=== PATIENT | male | born 1930 | race Caucasian/White ===

== ENCOUNTER 2017-02-24 10:40 | Day surgery (SDC) | payer MEDICARE, BC ==
[2017-02-21 09:41] VITALS: BMI 27.2
[~2017-02-24 10:40] MED LIST: DEXAMETHASONE SOD PHOSPHATE 10 MG/ML 1 ML VIAL IV ONE; HEPARIN SODIUM,PORCINE 5,000 UNIT/ML 1 ML VIAL SQ ONE; LIDOCAINE 1% 20 ML VIAL (10MG/ML) FOR IV START INTRADERMA PRN; ONDANSETRON 4 MG/2 ML VIAL IVP ONE; ceFAZolin IN SWFI 2 GM/20 ML SYRINGE IVP ONE
[2017-02-24] MEDS: LACTATED RINGERS 1,000 ML IV SCH ×3 (12:11→22:12)
[2017-02-24 12:49] LABS: Potassium 5.6 mmol/L (3.5-5.1)
--- NOTE | 2017-02-24 13:04 | P.GSHP ---
History of Present Illness H&P Date: 02/24/17 Chief Complaint: Right upper quadrant pain This is a 86-year-old male for from Dr. Anibal Portillo. Patient points of right upper quadrant pain. His recent ultrasound shows evidence of chronic cholecystitis. He presents today for laparoscopic cholecystectomy. Past Medical History Past Medical History: Cancer, Hyperlipidemia, Hypertension, Osteoarthritis (OA) , Prostate Disorder Additional Past Medical History / Comment(s): SINUS ALLERGIES. GLAUCOMA (RIGHT EYE), numbness- lt foot pinky toe and toe next to it, prostate cancer with radiation History of Any Multi-Drug Resistant Organisms: None Reported Past Surgical History: Heart Catheterization, Hernia Repair, Joint Replacement Additional Past Surgical History / Comment(s): BILATERAL CATARACTS (2004). TOTAL RIGHT HIP, lt knee replacement Past Anesthesia/Blood Transfusion Reactions: No Reported Reaction Past Psychological History: No Psychological Hx Reported Smoking Status: Never smoker Past Alcohol Use History: Occasional Past Drug Use History: None Reported - Past Family History Mother Family Medical History: No Reported History Medications and Allergies Home Medications Medication Instructions Recorded Confirmed Type Dorzolamide 2% [Trusopt 2%] 1 drops RIGHT EYE BID 02/21/17 02/21/17 History Isosorbide Mononitrate [Isosorbide 30 mg PO DAILY 02/21/17 02/21/17 History Mononitrate ER] Latanoprost Ophth [Xalatan 0.005%] 1 drops RIGHT EYE HS 02/21/17 02/21/17 History Losartan [Cozaar] 25 mg PO DAILY 02/21/17 02/21/17 History Simvastatin [Zocor] 20 mg PO HS 02/21/17 02/21/17 History Allergies Allergy/AdvReac Type Severity Reaction Status Date / Time No Known Allergies Allergy Verified 02/21/17 09:35 Surgical - Exam Vital Signs Temp Pulse Resp BP Pulse Ox 97.8 F 79 18 164/82 96 02/24/17 12:02 02/24/17 12:02 02/24/17 12:02 02/24/17 12:02 02/24/17 12:02 - General well developed, no distress - Eyes PERRL - ENT normal pinna - Neck no masses - Respiratory normal expansion - Cardiovascular Rhythm: regular - Abdomen Abdomen: soft, non tender Assessment and Plan Assessment: Chronic cholecystitis. Right upper quadrant pain. We'll perform laparoscopic cholecystectomy.
[2017-02-24] MEDS ORDERED: GLYCOPYRROLATE 0.2 MG/ML 2 ML VIAL ONE (13:33)
[2017-02-24] MEDS ORDERED: SUCCINYLCHOLINE CHLORIDE 100 MG/5 ML SYR IV ONE (13:33)
[2017-02-24] MEDS ORDERED: LIDOCAINE 1% INJ 10MG/ML (20 ML MDV) ONE (13:33)
[2017-02-24] MEDS ORDERED: NEOSTIGMINE 1 MG/ML 10 ML VIAL ONE (13:33)
[2017-02-24] MEDS ORDERED: fentaNYL (PF) 50 MCG/ML 2 ML AMP ONE (13:33)
[2017-02-24] MEDS ORDERED: PROPOFOL 10 MG/ML 20 ML VIAL IV ONE (13:33)
[2017-02-24] MEDS ORDERED: ROCURONIUM BROMIDE 10 MG/ML 10 ML VIAL IV ONE (13:33)
[2017-02-24] MEDS ORDERED: BUPIVACAINE (PF) 0.5% 30 ML VIAL SQ ONE (14:10)
[2017-02-24] MEDS ORDERED: LACTATED RINGERS 1,000 ML IV ONE (14:14)
[2017-02-24] MEDS: HYDROmorphone 0.5 MG/0.5 ML SYRINGE IVP PRN ×2 (14:43→14:53)
[2017-02-24] MEDS: LABETALOL 5 MG/ML VIAL MDV IVP ONE ×2 (14:53→15:08)
--- NOTE | 2017-02-24 15:03 | P.OP ---
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 The patient received a general endotracheal tube anesthesia. The patients abdomen was prepped and draped in the usual sterile fashion. Through an infraumbilical stab incision, the fascia of the anterior abdominal wall was grasped with a pair of Kochers and then the Veress needle was placed in the peritoneal cavity. Position of the Veress needle was confirmed with positive drop test. The abdomen was then insufflated. After adequate insufflation, the 10 mm trocar was placed in the peritoneal cavity. Following this the laparoscope was placed in the peritoneal cavity. The patient was placed in the head-up, right side up position and then a 5 mm trocar was placed in the right lateral and right subcostal position under direct visualization. A 8 mm trocar was placed in the epigastric position. There appeared to be scar tissue along the right liver edge. Using the Harmonic scissors the scar tissue was divided. There was evidence of scarring just above the gallbladder fossa. This was grasped with grasper and the liver was retracted cephalad. Using blunt and sharp dissection the area of fat around the gallbladder fossa was dissected. The gallbladder was difficult to visualize. The dissection was extended towards the common bile duct. Using a pusher the fact that the peritoneum was dissected free the gallbladder was still difficult to see. The common bile duct was visualized. The cystic duct was then visualized off the common bile duct. There was dense inflammation in the gallbladder fossa. The gallbladder fossa had the appearance of a previous cholecystectomy. There were no other scars in the patient's abdominal wall. At this point the cystic duct was then bluntly dissected. And then the cystic duct was ligated with 2-0 Ethibond suture the timeout device. The scar tissue in the gallbladder fossa was then dissected free using the Harmonic scissors. Care was taken to identify and preserve the common bile duct and common hepatic duct. The specimen was placed in Endo Catch and brought out through the epigastric 8 mm trocar site. The abdomen was irrigated. There is no bleeding seen. The trochars withdrawn. Skin was closed interrupted 3-0 Monocryl suture. Dermabond was applied. Patient was sent to recovery in stable condition.
[2017-02-24] MEDS ORDERED: MORPHINE SULFATE 4 MG/ML SYRINGE IVP ONE (15:10)
[2017-02-24] MEDS: hydrALAZINE HCL 20 MG/ML 1 ML VIAL IV ONE ×2 (15:54→17:13)
[2017-02-24] MEDS ORDERED: HYDROcodone/APAP 7.5-325MG 1 EACH TAB PO ONE (16:14)
[2017-02-24] MEDS ORDERED: HYDROmorphone 2 MG/ML 1 ML SYRINGE IVP PRN (19:29)
[2017-02-24] MEDS ORDERED: HYDROcodone/APAP 5-325MG 1 EACH TAB PO PRN (19:30)
[2017-02-24] MEDS ORDERED: ONDANSETRON 4 MG/2 ML VIAL IVP PRN (19:32)
[2017-02-24] MEDS ORDERED: ATORVASTATIN 10 MG TAB PO SCH (21:15)
[2017-02-24] MEDS ORDERED: LATANOPROST 0.005% OPHTH DROPS 2.5 ML BTL RIGHT EYE SCH (21:15)
[2017-02-24] MEDS: DORZOLAMIDE HCL 2% DROPS 10 ML BTL RIGHT EYE SCH (22:12)
[2017-02-25] MEDS: LACTATED RINGERS 1,000 ML IV SCH (06:40)
[2017-02-25] MEDS ORDERED: ISOSORBIDE MONONITRATE ER 30 MG TAB.ER.24H PO SCH (09:00)
[2017-02-25] MEDS: DORZOLAMIDE HCL 2% DROPS 10 ML BTL RIGHT EYE SCH (10:08)
[2017-02-25 11:47] LABS: Anion Gap 9 mmol/L; Blood Urea Nitrogen 23 mg/dL (9-20); Calcium 9.4 mg/dL (8.4-10.2); Carbon Dioxide 20 mmol/L (22-30); Chloride 104 mmol/L (98-107); Glucose 115 mg/dL (74-99); Non-African American GFR(MDRD) >60 (>60 ml/min/1.73 sqM); Potassium 4.5 mmol/L (3.5-5.1); Sodium 133 mmol/L (137-145)
[2017-02-25 12:33] VITALS: BP 158/76; PULSE 72; RESP 16; TEMP 98
--- NOTE | 2017-02-25 12:57 | P.PN ---
Subjective Progress Note Date: 02/25/17 Principal diagnosis: Cholecystitis Patient doing well no complaints abdominal pain is improved he is ambulating tolerating a diet Objective - Vital Signs Vital signs: Vital Signs Temp 98.0 F 02/25/17 12:00 Pulse 72 02/25/17 12:00 Resp 16 02/25/17 12:00 BP 158/76 02/25/17 12:00 Pulse Ox 91 L 02/25/17 12:00 Intake & Output 02/24/17 02/25/17 02/25/17 18:59 06:59 18:59 Intake Total 1999 900 Output Total 10 600 375 Balance 1989 300 -375 Intake: IV 2000 800 Lactated Ringers 1,000 ml 800 @ 100 mls/hr IV .Q10H [facility] Rx#:[id number] Oral 100 Output: Urine 600 375 Uretheral (Marie) 375 Estimated Blood Loss 10 Other: Voiding Method Indwelling Catheter Indwelling Catheter - Constitutional General appearance: Present: average body habitus, cooperative - EENT Eyes: Present: PERRLA - Respiratory Details: Nonlabored breathing - Cardiovascular Rhythm: regular - Gastrointestinal Gastrointestinal Comment(s): Soft nontender nondistended incisions clean dry and intact - Psychiatric Psychiatric: Present: A&O x's 3 - Labs CBC & Chem 7: 02/25/17 11:22 Labs: Abnormal Lab Results - Last 24 Hours (Table) 02/24/17 02/25/17 Range/Units 12:29 11:22 Sodium 133 L (137-145) mmol/L Potassium 5.6 H (3.5-5.1) mmol/L Carbon Dioxide 20 L (22-30) mmol/L BUN 23 H (9-20) mg/dL Glucose 115 H (74-99) mg/dL Assessment and Plan Assessment: Postoperative day 1 laparoscopic cholecystectomy Plan: Patient is tolerating his diet DC Marie it able to urinate on his own he may be discharged home.
--- NOTE | 2017-02-25 13:02 | P.CONS ---
History of Present Illness - History of Present Illness Patient underwent laparoscopic cholecystectomy for chronic cholecystitis patient is clinically doing well medicine was consulted secondary to hypertension and the hyperkalemia patient is on losartan 25 mg I'm able to review his home blood pressures most of which are in low 100s with 25 mg of losartan because of which I do not believe he'll require it and this will be discontinued patient was asked to follow-up with Dr. Anibal Schroeder as an outpatient. Patient denied any fever, chills, nausea, vomiting patient is a Marie catheter in place did not move his bowel yet but doesn't pass gas patient is otherwise clinically doing well. Review of Systems REVIEW OF SYSTEMS: CONSTITUTIONAL: No fever, no malaise, no fatigue. HEENT: No recent visual problems or hearing problems. Denied any sore throat. CARDIOVASCULAR: No chest pain, orthopnea, PND, no palpitations, no syncope. PULMONARY: No shortness of breath, no cough, no hemoptysis. GASTROINTESTINAL: No diarrhea, no nausea, no vomiting, no abdominal pain. Normoactive bowel sounds. NEUROLOGICAL: No headaches, no weakness, no numbness. HEMATOLOGICAL: Denies any bleeding or petechiae. GENITOURINARY: Denies any burning micturition, frequency, or urgency. MUSCULOSKELETAL/RHEUMATOLOGICAL: Denies any joint pain, swelling, or any muscle pain. ENDOCRINE: Denies any polyuria or polydipsia. The rest of the 14-point review of systems is negative. Past Medical History Past Medical History: Cancer, Hyperlipidemia, Hypertension, Osteoarthritis (OA) , Prostate Disorder Additional Past Medical History / Comment(s): SINUS ALLERGIES. GLAUCOMA (RIGHT EYE), numbness- lt foot pinky toe and toe next to it, prostate cancer with radiation History of Any Multi-Drug Resistant Organisms: None Reported Past Surgical History: Heart Catheterization, Hernia Repair, Joint Replacement Additional Past Surgical History / Comment(s): BILATERAL CATARACTS (2004). TOTAL RIGHT HIP, lt knee replacement Past Anesthesia/Blood Transfusion Reactions: No Reported Reaction Smoking Status: Never smoker - Past Family History Mother Family Medical History: No Reported History Medications and Allergies Home Medications Medication Instructions Recorded Confirmed Type Dorzolamide 2% [Trusopt 2%] 1 drops RIGHT EYE BID 02/21/17 02/21/17 History Isosorbide Mononitrate [Isosorbide 30 mg PO DAILY 02/21/17 02/21/17 History Mononitrate ER] Latanoprost Ophth [Xalatan 0.005%] 1 drops RIGHT EYE HS 02/21/17 02/21/17 History Simvastatin [Zocor] 20 mg PO HS 02/21/17 02/21/17 History Allergies Allergy/AdvReac Type Severity Reaction Status Date / Time No Known Allergies Allergy Verified 02/24/17 20:48 Physical Exam Vitals: Vital Signs Temp Pulse Pulse Pulse Resp BP BP 02/25/17 12:00 98.0 F 72 16 02/25/17 08:00 98.1 F 74 18 02/25/17 03:49 17 02/25/17 03:38 98.3 F 72 17 02/24/17 23:54 16 02/24/17 22:42 97.8 F 79 16 02/24/17 20:54 17 02/24/17 20:40 98.0 F 81 17 183/79 02/24/17 19:05 86 20 172/81 02/24/17 18:35 68 16 165/70 02/24/17 18:06 64 16 163/76 02/24/17 17:45 68 16 166/75 02/24/17 16:41 179/84 02/24/17 16:19 182/87 02/24/17 16:02 67 16 197/80 02/24/17 15:46 65 16 201/94 02/24/17 15:30 67 16 177/84 02/24/17 15:24 60 180/90 02/24/17 15:15 60 16 182/88 02/24/17 15:07 66 192/97 02/24/17 15:01 71 16 183/92 02/24/17 14:59 77 16 190/109 02/24/17 14:47 94 16 201/108 02/24/17 14:32 97.0 F L 88 14 179/108 BP Pulse Ox 02/25/17 12:00 158/76 91 L 02/25/17 08:00 179/82 96 02/25/17 03:49 02/25/17 03:38 142/77 93 L 02/24/17 23:54 02/24/17 22:42 157/74 91 L 02/24/17 20:54 02/24/17 20:40 94 L 02/24/17 19:05 94 L 02/24/17 18:35 99 02/24/17 18:06 99 02/24/17 17:45 99 02/24/17 16:41 02/24/17 16:19 02/24/17 16:02 02/24/17 15:46 99 02/24/17 15:30 94 L 02/24/17 15:24 02/24/17 15:15 97 02/24/17 15:07 02/24/17 15:01 96 02/24/17 14:59 95 02/24/17 14:47 100 02/24/17 14:32 100 Intake and Output 02/24/17 02/25/17 02/25/17 22:59 06:59 14:59 Intake Total 900 800 Output Total 600 375 Balance 900 200 -375 Intake: IV 800 800 Lactated Ringers 1,000 ml 800 @ 100 mls/hr IV .Q10H [facility] Rx#:[id number] Oral 100 Output: Urine 600 375 Uretheral (Marie) 375 Other: Voiding Method Indwelling Catheter Indwelling Catheter Indwelling Catheter PHYSICAL EXAMINATION: GENERAL: The patient is alert and oriented x3, not in any acute distress. Well developed, well nourished. HEENT: Pupils are round and equally reacting to light. EOMI. No scleral icterus. No conjunctival pallor. Normocephalic, atraumatic. No pharyngeal erythema. No thyromegaly. CARDIOVASCULAR: S1 and S2 present. No murmurs, rubs, or gallops. PULMONARY: Chest is clear to auscultation, no wheezing or crackles. ABDOMEN: Soft, nontender, nondistended, normoactive bowel sounds. No palpable organomegaly. Surgical site areas appears to be clean MUSCULOSKELETAL: No joint swelling or deformity. EXTREMITIES: No cyanosis, clubbing, or pedal edema. NEUROLOGICAL: Gross neurological examination did not reveal any focal deficits. SKIN: No rashes. Results CBC & Chem 7: 02/25/17 11:22 Labs: Abnormal Lab Results - Last 24 Hours (Table) 02/24/17 02/25/17 Range/Units 12:29 11:22 Sodium 133 L (137-145) mmol/L Potassium 5.6 H (3.5-5.1) mmol/L Carbon Dioxide 20 L (22-30) mmol/L BUN 23 H (9-20) mg/dL Glucose 115 H (74-99) mg/dL Assessment and Plan Plan: 1 hypertension: I do not believe patient will require losartan and patient is hypokalemic we'll repeat potassium again and losartan will be discontinued and patient will follow with PCP as an outpatient. #2 chronic cholecystitis patient is status post laparoscopic cholecystectomy. #3 hyperlipidemia #4 osteoarthritis #5 benign prostatic hypertrophy Patient is otherwise clinically doing well patient is medically stable to be discharged losartan will be discontinued upon discharge patient will follow Dr. Anibal Schroeder in about 3-5 days.
== END 2017-02-25 15:04 | disposition home or self-care (01) ==
LOC: OR 10:40 → 3OBS 14:37 → OR 02-25 15:04
PROVIDERS: ATTEND Surgery
DX: K81.1 Chronic cholecystitis (principal); Q44.1 Other congenital malformations of gallbladder; I10 Essential (primary) hypertension; E78.5 Hyperlipidemia, unspecified; M19.90 Unspecified osteoarthritis, unspecified site; N40.0 Benign prostatic hyperplasia without lower urinary tract symptoms; E87.5 Hyperkalemia; H40.9 Unspecified glaucoma; J45.909 Unspecified asthma, uncomplicated; Z85.9 Personal history of malignant neoplasm, unspecified; Z79.899 Other long term (current) drug therapy
CPT/HCPCS: 80051; 80048; 47562; J2270; J1170 ×2; J0360; J1644; J1100; J2710; J0690; J2405; J2001; J3010; J0330; J2704; 88304; 88341; 88342

== ENCOUNTER 2017-08-12 13:43 | Observation (INO) | payer MEDICARE, BC ==
[2017-08-12] MEDS ORDERED: NITROGLYCERIN OINT 1 INCH/GM PACKET TOPICAL STA (14:33)
[2017-08-12] MEDS ORDERED: ASPIRIN 81 MG PO STA (14:33)
--- NOTE | 2017-08-12 14:36 | ED ---
General Adult HPI - General Chief complaint: Recheck/Abnormal Lab/Rx Stated complaint: high b/p Time Seen by Provider: 08/12/17 14:00 Source: patient, RN notes reviewed Mode of arrival: ambulatory Limitations: no limitations - History of Present Illness Initial comments: This is an 86-year-old male who has no significant medical problems. Patient states he comes in today because his blood pressures been up and down since yesterday and he started having some chest pressure and some shortness of breath earlier today. Patient states those symptoms seem to come and go. Daughter states when she arrived he was very short of breath and diaphoretic patient states that didn't last very long and currently he is chest pain-free. Patient's only other symptom is been having lately is that he has been very tired. Patient denies any recent fever chills or cough. Though he is on Levaquin because his doctor thought he might of been exposed to something in the hospital. Patient denies any abdominal pain patient denies nausea vomiting diarrhea. Patient denies headache patient denies numbness weakness. Patient denies any lightheadedness dizziness or near syncopal episode. - Related Data Home Medications Medication Instructions Recorded Confirmed Dorzolamide 2% [Trusopt 2%] 1 drops RIGHT EYE BID 02/21/17 02/21/17 Isosorbide Mononitrate [Isosorbide 30 mg PO DAILY 02/21/17 02/21/17 Mononitrate ER] Latanoprost Ophth [Xalatan 0.005%] 1 drops RIGHT EYE HS 02/21/17 02/21/17 Simvastatin [Zocor] 20 mg PO HS 02/21/17 02/21/17 Allergies Allergy/AdvReac Type Severity Reaction Status Date / Time Sulfa (Sulfonamide Allergy Unknown Verified 08/12/17 14:06 Antibiotics) Childhood Review of Systems ROS Statement: Those systems with pertinent positive or pertinent negative responses have been documented in the HPI. ROS Other: All systems not noted in ROS Statement are negative. Past Medical History Past Medical History: Cancer, Hyperlipidemia, Hypertension, Osteoarthritis (OA) , Prostate Disorder Additional Past Medical History / Comment(s): SINUS ALLERGIES. GLAUCOMA (RIGHT EYE), numbness- lt foot pinky toe and toe next to it, prostate cancer with radiation History of Any Multi-Drug Resistant Organisms: None Reported Past Surgical History: Heart Catheterization, Hernia Repair, Joint Replacement Additional Past Surgical History / Comment(s): BILATERAL CATARACTS (2004). TOTAL RIGHT HIP, lt knee replacement Past Anesthesia/Blood Transfusion Reactions: No Reported Reaction Past Psychological History: No Psychological Hx Reported Smoking Status: Never smoker Past Alcohol Use History: None Reported Past Drug Use History: None Reported - Past Family History Mother Family Medical History: No Reported History General Exam - General Exam Comments Initial Comments: GENERAL: Patient is well-developed and well-nourished. Patient is nontoxic and well- hydrated and is in mild distress. ENT: Neck is soft and supple. No significant lymphadenopathy is noted. Oropharynx is clear. Moist mucous membranes. Neck has full range of motion without eliciting any pain. EYES: The sclera were anicteric and conjunctiva were pink and moist. Extraocular movements were intact and pupils were equal round and reactive to light. Eyelids were unremarkable. PULMONARY: Unlabored respirations. Good breath sounds bilaterally. No audible rales rhonchi or wheezing was noted. CARDIOVASCULAR: There is a regular rate and rhythm without any murmurs gallops or rubs. ABDOMEN: Soft and nontender with normal bowel sounds. No palpable organomegaly was noted. There is no palpable pulsatile mass. SKIN: Skin is clear with no lesions or rashes and otherwise unremarkable. NEUROLOGIC: Patient is alert and oriented x3. Cranial nerves II through XII are grossly intact. Motor and sensory are also intact. Normal speech, volume and content. Symmetrical smile. MUSCULOSKELETAL: Normal extremities with adequate strength and full range of motion. No lower extremity swelling or edema. No calf tenderness. LYMPHATICS: No significant lymphadenopathy is noted PSYCHIATRIC: Normal psychiatric evaluation. Normal interpersonal interactions appears functionally intact in deals appropriately with others. No signs of depression. No signs of anxiety. Limitations: no limitations Course Vital Signs 08/12/17 08/12/17 08/12/17 14:02 14:50 14:56 Temperature 99.6 F Pulse Rate 70 70 Pulse Rate [ 70 [employer] ] Respiratory 18 18 Rate Blood Pressure 135/62 163/87 O2 Sat by Pulse 95 95 Oximetry Medical Decision Making - Medical Decision Making EKG shows normal sinus rhythm at 63 bpm OH interval 280 QRSs 130 QT interval 466 QTC is 476. Patient's EKG shows no ST segment elevation or depression or T wave abnormalities are noted. Chest x-ray shows no acute abnormality. Patient's blood pressure was elevated slightly slight edema little hydralazine. I spoke with because he agreed to admit the patient admitted the patient wrote admitting orders. - Lab Data Result diagrams: 08/12/17 14:45 08/12/17 14:45 Lab Results 08/12/17 08/12/17 08/12/17 Range/Units 14:45 14:45 14:45 WBC 7.9 (3.8-10.6) k/uL RBC 4.75 (4.30-5.90) m/uL Hgb 14.4 (13.0-17.5) gm/dL Hct 43.4 (39.0-53.0) % MCV 91.2 (80.0-100.0) fL MCH 30.3 (25.0-35.0) pg MCHC 33.3 (31.0-37.0) g/dL RDW 12.5 (11.5-15.5) % Plt Count 200 (150-450) k/uL Neutrophils % 79 % Lymphocytes % 10 % Monocytes % 6 % Eosinophils % 4 % Basophils % 0 % Neutrophils # 6.2 (1.3-7.7) k/uL Lymphocytes # 0.8 L (1.0-4.8) k/uL Monocytes # 0.5 (0-1.0) k/uL Eosinophils # 0.3 (0-0.7) k/uL Basophils # 0.0 (0-0.2) k/uL PT (9.0-12.0) sec INR (<1.2) APTT (22.0-30.0) sec Sodium 141 (137-145) mmol/L Potassium 4.3 (3.5-5.1) mmol/L Chloride 108 H (98-107) mmol/L Carbon Dioxide 19 L (22-30) mmol/L Anion Gap 14 mmol/L BUN 24 H (9-20) mg/dL Creatinine 1.18 (0.66-1.25) mg/dL Est GFR (CKD-EPI)AfAm 65 (>60 ml/min/1.73 sqM) Est GFR (CKD-EPI)NonAf 56 (>60 ml/min/1.73 sqM) Glucose 94 (74-99) mg/dL Calcium 9.5 (8.4-10.2) mg/dL Magnesium 2.1 (1.6-2.3) mg/dL Total Bilirubin 0.6 (0.2-1.3) mg/dL AST 20 (17-59) U/L ALT 18 L (21-72) U/L Alkaline Phosphatase 95 (38-126) U/L Total Creatine Kinase 88 (55-170) U/L CK-MB (CK-2) 1.9 (0.0-2.4) ng/mL CK-MB (CK-2) Rel Index 2.2 Troponin I 0.013 (0.000-0.034) ng/mL Total Protein 6.2 L (6.3-8.2) g/dL Albumin 3.9 (3.5-5.0) g/dL 08/12/17 Range/Units 14:45 WBC (3.8-10.6) k/uL RBC (4.30-5.90) m/uL Hgb (13.0-17.5) gm/dL Hct (39.0-53.0) % MCV (80.0-100.0) fL MCH (25.0-35.0) pg MCHC (31.0-37.0) g/dL RDW (11.5-15.5) % Plt Count (150-450) k/uL Neutrophils % % Lymphocytes % % Monocytes % % Eosinophils % % Basophils % % Neutrophils # (1.3-7.7) k/uL Lymphocytes # (1.0-4.8) k/uL Monocytes # (0-1.0) k/uL Eosinophils # (0-0.7) k/uL Basophils # (0-0.2) k/uL PT 10.4 (9.0-12.0) sec INR 1.1 (<1.2) APTT 24.7 (22.0-30.0) sec Sodium (137-145) mmol/L Potassium (3.5-5.1) mmol/L Chloride (98-107) mmol/L Carbon Dioxide (22-30) mmol/L Anion Gap mmol/L BUN (9-20) mg/dL Creatinine (0.66-1.25) mg/dL Est GFR (CKD-EPI)AfAm (>60 ml/min/1.73 sqM) Est GFR (CKD-EPI)NonAf (>60 ml/min/1.73 sqM) Glucose (74-99) mg/dL Calcium (8.4-10.2) mg/dL Magnesium (1.6-2.3) mg/dL Total Bilirubin (0.2-1.3) mg/dL AST (17-59) U/L ALT (21-72) U/L Alkaline Phosphatase (38-126) U/L Total Creatine Kinase (55-170) U/L CK-MB (CK-2) (0.0-2.4) ng/mL CK-MB (CK-2) Rel Index Troponin I (0.000-0.034) ng/mL Total Protein (6.3-8.2) g/dL Albumin (3.5-5.0) g/dL Disposition Clinical Impression: Hypertension, Chest pain Disposition: ADMITTED IP TO THIS [facility] Referrals: Anibal Schroeder DO [Primary Care Provider] - 1-2 days Time of Disposition: 15:45
[2017-08-12 15:02] LABS: Basophils % (A) 0 %; Eosinophils # (A) 0.3 k/uL (0-0.7); Eosinophils % (A) 4 %; HCT 43.4 % (39.0-53.0); HGB 14.4 gm/dL (13.0-17.5); Lymphocytes # (A) 0.8 k/uL (1.0-4.8); Lymphocytes % (A) 10 %; MCH 30.3 pg (25.0-35.0); MCHC 33.3 g/dL (31.0-37.0); MCV 91.2 fL (80.0-100.0); Mean Platelet Volume 7.1; Monocytes # (A) 0.5 k/uL (0-1.0); Monocytes % (A) 6 %; Neutrophils # (A) 6.2 k/uL (1.3-7.7); Neutrophils % (A) 79 %; Platelet Count 200 k/uL (150-450); RBC 4.75 m/uL (4.30-5.90); RDW 12.5 % (11.5-15.5); WBC 7.9 k/uL (3.8-10.6)
[2017-08-12 15:07] LABS: Albumin 3.9 g/dL (3.5-5.0); Calcium 9.5 mg/dL (8.4-10.2); Magnesium 2.1 mg/dL (1.6-2.3); Potassium 4.3 mmol/L (3.5-5.1); Total Bilirubin 0.6 mg/dL (0.2-1.3); Total Protein 6.2 g/dL (6.3-8.2)
[2017-08-12 15:11] LABS: INR 1.1 (<1.2); Partial Thromboplastin Time 24.7 sec (22.0-30.0); Prothrombin Time 10.4 sec (9.0-12.0)
--- NOTE | 2017-08-12 15:23 | XR ---
EXAMINATION TYPE: XR chest 2V DATE OF EXAM: 08/12/2017 COMPARISON: 04/29/2015 HISTORY: Shortness of breath TECHNIQUE: Frontal and lateral views of the chest are obtained. FINDINGS: Scattered senescent parenchymal changes noted. Hyperinflation compatible with COPD. No evidence for infiltrate. No evidence for atelectasis. Focal eventration right hemidiaphragm. Heart size is stable. Mediastinal structures are stable and grossly unremarkable. No evidence for hilar prominence. Degenerative changes dorsal spine. IMPRESSION: 1. No evidence for acute pulmonary disease.
[2017-08-12 15:29] LABS: Creatine Kinase MB 1.9 ng/mL (0.0-2.4); Troponin I 0.013 ng/mL (0.000-0.034)
[2017-08-12] MEDS ORDERED: hydrALAZINE HCL 20 MG/ML 1 ML VIAL IVP STA ×2 (15:43→15:53)
[2017-08-12] MEDS ORDERED: NITROGLYCERIN SL TABS 0.4 MG TAB SUBLINGUAL PRN (15:45)
--- NOTE | 2017-08-12 16:51 | P.HPIM ---
History of Present Illness Patient is a pleasant 86-year-old gentleman came in with the complaints of elevated blood pressure patient brought his blood pressure machine, check his blood pressure 1 time it was 190 /90 systolic followed by 1 60 /90 systolic and patient came to ER it was 1 32 . Patient denied any chest pain to me but apparently patient was complained of low some and tingling across the chest he denied any diaphoresis to me although apparently the person who was a next the patient did Feel he is probably 6 excessively sweating because of which ER physician asked me to admit to rule out acute coronary syndromes. Patient denied any fever chills cough runny nose patient is on levofloxacin for some upper respiratory illness. Patient doesn't take any medications at home. Although in his history is documented patient has hyperlipidemia. Patient wanted to go home. Initially discharge the patient after discussion with the ER physician decided to monitor him overnight repeat 2 more sets of troponin and EKG. Patient follows with Dr. Gusman for cardiology, actually had a visit to his clinic yesterday. Patient denied any shortness of breath to me blurry vision, abdominal pain or confusion. 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 Patient follows with Dr. Schroeder as primary care physician. Review of Systems REVIEW OF SYSTEMS: CONSTITUTIONAL: No fever, no malaise, no fatigue. HEENT: No recent visual problems or hearing problems. Denied any sore throat. CARDIOVASCULAR: No chest pain, orthopnea, PND, no palpitations, no syncope. PULMONARY: No shortness of breath, no cough, no hemoptysis. GASTROINTESTINAL: No diarrhea, no nausea, no vomiting, no abdominal pain. Normoactive bowel sounds. NEUROLOGICAL: No headaches, no weakness, no numbness. HEMATOLOGICAL: Denies any bleeding or petechiae. GENITOURINARY: Denies any burning micturition, frequency, or urgency. MUSCULOSKELETAL/RHEUMATOLOGICAL: Denies any joint pain, swelling, or any muscle pain. ENDOCRINE: Denies any polyuria or polydipsia. The rest of the 14-point review of systems is negative. Past Medical History Past Medical History: Cancer, Hyperlipidemia, Hypertension, Osteoarthritis (OA) , Prostate Disorder Additional Past Medical History / Comment(s): SINUS ALLERGIES. GLAUCOMA (RIGHT EYE), numbness- lt foot pinky toe and toe next to it, prostate cancer with radiation History of Any Multi-Drug Resistant Organisms: None Reported Past Surgical History: Heart Catheterization, Hernia Repair, Joint Replacement Additional Past Surgical History / Comment(s): BILATERAL CATARACTS (2004). TOTAL RIGHT HIP, lt knee replacement Past Anesthesia/Blood Transfusion Reactions: No Reported Reaction Past Psychological History: No Psychological Hx Reported Smoking Status: Never smoker Past Alcohol Use History: None Reported Past Drug Use History: None Reported - Past Family History Mother Family Medical History: No Reported History Medications and Allergies Home Medications Medication Instructions Recorded Confirmed Type Levofloxacin [Levaquin] 500 mg PO DAILY 08/12/17 08/12/17 History Allergies Allergy/AdvReac Type Severity Reaction Status Date / Time Sulfa (Sulfonamide Allergy Unknown Verified 08/12/17 16:00 Antibiotics) Childhood Physical Exam Vitals: Vital Signs Temp Pulse Pulse Resp BP Pulse Ox 08/12/17 16:41 76 18 158/89 98 08/12/17 15:52 63 18 158/87 96 08/12/17 14:56 70 08/12/17 14:50 70 18 163/87 95 08/12/17 14:02 99.6 F 70 18 135/62 95 Intake and Output 08/12/17 08/12/17 08/12/17 06:59 14:59 22:59 Other: Weight 81.193 kg PHYSICAL EXAMINATION: GENERAL: The patient is alert and oriented x3, not in any acute distress. Well developed, well nourished. HEENT: Pupils are round and equally reacting to light. EOMI. No scleral icterus. No conjunctival pallor. Normocephalic, atraumatic. No pharyngeal erythema. No thyromegaly. CARDIOVASCULAR: S1 and S2 present. No murmurs, rubs, or gallops. PULMONARY: Chest is clear to auscultation, no wheezing or crackles. ABDOMEN: Soft, nontender, nondistended, normoactive bowel sounds. No palpable organomegaly. MUSCULOSKELETAL: No joint swelling or deformity. EXTREMITIES: No cyanosis, clubbing, or pedal edema. NEUROLOGICAL: Gross neurological examination did not reveal any focal deficits. SKIN: No rashes. Results CBC & Chem 7: 08/12/17 14:45 08/12/17 14:45 Labs: Abnormal Lab Results - Last 24 Hours (Table) 08/12/17 08/12/17 Range/Units 14:45 14:45 Lymphocytes # 0.8 L (1.0-4.8) k/uL Chloride 108 H (98-107) mmol/L Carbon Dioxide 19 L (22-30) mmol/L BUN 24 H (9-20) mg/dL ALT 18 L (21-72) U/L Total Protein 6.2 L (6.3-8.2) g/dL Assessment and Plan Plan: -Elevated blood pressure: My suspicion is low that patient has essential hypertension, his blood pressure is elevated because of inappropriate measurement. -Possible chest pain patient will be admitted to rule out a concurrent syndromes. Possible the of discharge tomorrow -Hyperlipidemia not in any medications for that, I will obtain LDL fasting tomorrow morning
[2017-08-12] MEDS: NITROGLYCERIN OINT 1 INCH/GM PACKET TOPICAL SCH (17:47)
[2017-08-12 18:14] VITALS: BMI 27.2
[2017-08-12 21:48] LABS: Creatine Kinase MB 1.3 ng/mL (0.0-2.4); Troponin I 0.015 ng/mL (0.000-0.034)
[2017-08-12 23:18] VITALS: RESP 16
[2017-08-13] MEDS: NITROGLYCERIN OINT 1 INCH/GM PACKET TOPICAL SCH ×2 (02:07→05:37)
[2017-08-13] MEDS ORDERED: ACETAMINOPHEN TAB 325 MG TAB PO PRN (02:08)
[2017-08-13 03:00] LABS: Cholesterol 165 mg/dL (<200); HDL Cholesterol 58 mg/dL (40-60); LDL Cholesterol,Calculated 90 mg/dL (0-99); Triglycerides 85 mg/dL (<150)
[2017-08-13 03:56] LABS: Creatine Kinase MB 1.1 ng/mL (0.0-2.4); Troponin I 0.013 ng/mL (0.000-0.034)
[2017-08-13 08:51] VITALS: BP 148/67; PULSE 56; TEMP 98
[2017-08-13] MEDS ORDERED: ASPIRIN 325 MG TAB PO SCH (09:00)
--- NOTE | 2017-08-13 10:21 | P.DS ---
Providers Date of admission: 08/12/17 15:45 Attending physician: Quang Medina Consults: 08/12/17 15:45 Consult Physician Urgent Consulting Provider: [facility] Consult Reason/Comments: Chest pain, hypertension Do you want consulting provider notified?: Yes Primary care physician: Anibal Schroeder Hospital Course: Patient is admitted for elevated blood pressure mostly, his blood pressure is okay in the hospital and will not require any antidepressive medications. 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 There was questionable history of chest pain currently a valid the patient was ruled out acute medicine syndromes patient will be discharged today patient can have an outpatient stress test. Patient is clinically doing well. PHYSICAL EXAMINATION: GENERAL: The patient is alert and oriented x3, not in any acute distress. Well developed, well nourished. HEENT: Pupils are round and equally reacting to light. EOMI. No scleral icterus. No conjunctival pallor. Normocephalic, atraumatic. No pharyngeal erythema. No thyromegaly. CARDIOVASCULAR: S1 and S2 present. No murmurs, rubs, or gallops. PULMONARY: Chest is clear to auscultation, no wheezing or crackles. ABDOMEN: Soft, nontender, nondistended, normoactive bowel sounds. No palpable organomegaly. MUSCULOSKELETAL: No joint swelling or deformity. EXTREMITIES: No cyanosis, clubbing, or pedal edema. NEUROLOGICAL: Gross neurological examination did not reveal any focal deficits. SKIN: No rashes. Plan - Discharge Summary Discharge Rx Participant: No New Discharge Prescriptions: No Action Levofloxacin [Levaquin] 500 mg PO DAILY Discharge Medication List Levofloxacin [Levaquin] 500 mg PO DAILY 08/12/17 [History] Follow up Appointment(s)/Referral(s): Anibal Schroeder DO [Primary Care Provider] - 3 Days Discharge Disposition: HOME SELF-CARE
--- NOTE | 2017-08-13 13:16 | CONS ---
CONSULTATION This patient's medical records were reviewed. Mr. Fritz is an 86-year-old gentleman who is seen for cardiac evaluation. This patient was not feeling well and kind of feeling funny. He bought a new blood pressure machine and his initial blood pressure was high and subsequently he came to the emergency room. In the emergency room, patient's blood pressure was normal. The patient denied any chest pain. The patient otherwise denies any shortness of breath. Since admission in the hospital, the patient's blood pressure is normal. Patient is normally followed by Dr. Gusman and he just saw him a couple of days ago. PAST MEDICAL HISTORY: Includes hyperlipidemia, history of questionable hypertension, history of bilateral cataract, total right hip and left knee replacement. PHYSICAL EXAMINATION: In the emergency room, this patient had a temperature of 99.6. At present, the patient is comfortable. His blood pressure has remained normal since admission. Blood pressure is 148/67 mmHg. Heart rate is 56 per minute. HEENT examination is negative. NECK: Supple. There is no increase in jugular venous pressure. Both the carotid pulses are felt. There is no bruit. Chest is symmetrical. Heart the PMI is not felt. First and second heart sounds are normal. Lungs are clinically clear to auscultation and percussion. ABDOMEN: Soft. Liver and spleen are not enlarged. Bowel sounds are heard. Extremities, peripheral pulses are 2+. EKG shows normal sinus rhythm without any acute ischemic changes. Patient's troponins are normal. FINAL IMPRESSION: This patient was admitted with a vague funny feeling and questionable high blood pressure. His blood pressure has remained stable while in the hospital. The patient's EKGs and cardiac enzymes are normal. Patient can be discharged home. He is advised to check his blood pressure at home and follow up with Dr. Gusman as an outpatient. Thank you for this consultation. MMODL / IJN: [id number] /
== END 2017-08-13 12:03 | disposition home or self-care (01) ==
LOC: EC 13:43 → 3OBS 15:45 → 3SUR 16:56
PROVIDERS: ADMIT Internal Medicine; ATTEND Internal Medicine
DX: R03.0 Elevated blood-pressure reading, without diagnosis of hypertension (principal); R20.2 Paresthesia of skin; R20.0 Anesthesia of skin; E78.5 Hyperlipidemia, unspecified; H40.9 Unspecified glaucoma; J30.2 Other seasonal allergic rhinitis; M19.90 Unspecified osteoarthritis, unspecified site; Z85.46 Personal history of malignant neoplasm of prostate; Z92.3 Personal history of irradiation; Z88.2 Allergy status to sulfonamides; Z79.899 Other long term (current) drug therapy
CPT/HCPCS: 96374 ×2; 99284 ×2; 36415; 93005; 80061 ×2; 80053; 82550 ×2; 82553 ×2; 83605; 83735; 84484 ×2; 85025; 85610; 85730; 71046; G0378 ×2; J0360

== ENCOUNTER 2018-01-18 13:16 | Observation (INO) | payer MEDICARE, BC ==
--- NOTE | 2018-01-18 13:50 | ED ---
General Adult HPI - General Chief complaint: Chest Pain Stated complaint: chest tightness Source: patient Mode of arrival: ambulatory Limitations: no limitations - History of Present Illness Initial comments: Dictation was produced using [employer] dictation software. please excuse any grammatical, word or spelling errors. Chief Complaint: 87-year-old male past medical history of prostate cancer, dyslipidemia, hypertension presents with 3 weeks of chest pressure shortness of breath. History of Present Illness: It is a 7-year-old male status post radiation treatment. Presents today with 3 weeks of chest pressure and shortness of breath. Patient denies any cardiac history. Patient states she's been coughing slightly. No overt sick contacts. Patient denies any orthopnea or bilateral lower extremity swelling. Denies any recent travel. Chart review shows that patient has past medical history of cholecystectomy, cardiac cath. Patient states the chest pressure to his entire front chest. Denies any radiation of symptoms. Patient states that his symptoms are exacerbated with exertion. The ROS documented in this emergency department record has been reviewed and confirmed by me. Those systems with pertinent positive or negative responses have been documented in the HPI. All other systems are other negative and/or noncontributory. - Related Data Home Medications Medication Instructions Recorded Confirmed Aspirin EC [Ecotrin] 325 mg PO DAILY 01/18/18 01/18/18 Allergies Allergy/AdvReac Type Severity Reaction Status Date / Time Sulfa (Sulfonamide Allergy Unknown Verified 01/18/18 13:50 Antibiotics) Childhood Review of Systems ROS Statement: Those systems with pertinent positive or pertinent negative responses have been documented in the HPI. ROS Other: All systems not noted in ROS Statement are negative. Past Medical History Past Medical History: Cancer, Hyperlipidemia, Hypertension, Osteoarthritis (OA) , Prostate Disorder Additional Past Medical History / Comment(s): SINUS ALLERGIES. GLAUCOMA (RIGHT EYE), numbness- lt foot pinky toe and toe next to it, prostate cancer with radiation (44x) last one in October 26 History of Any Multi-Drug Resistant Organisms: None Reported Past Surgical History: Cholecystectomy, Heart Catheterization, Hernia Repair, Joint Replacement, Tonsillectomy Additional Past Surgical History / Comment(s): BILATERAL CATARACTS (2004). TOTAL RIGHT HIP, lt knee replacement Past Anesthesia/Blood Transfusion Reactions: No Reported Reaction Past Psychological History: No Psychological Hx Reported Smoking Status: Never smoker Past Alcohol Use History: None Reported Past Drug Use History: None Reported - Past Family History Mother Family Medical History: No Reported History General Exam - General Exam Comments Initial Comments: PHYSICAL EXAM: General Impression: Alert and oriented x3, not in acute distress HEENT: Normocephalic atraumatic, extra-ocular movements intact, pupils equal and reactive to light bilaterally, mucous membranes moist. Cardiovascular: Mildly irregular, S1&S2 audible, no murmurs, rubs or gallops Chest: Mild bilateral lung crackles Abdomen: Bowel sounds present, abdomen soft, non-tender, non-distended, no organomegaly Musculoskeletal: Pulses present and equal in all extremities, 1+ pitting edema Motor: Power 5/5 bilaterally, no focal deficits noted Neurological: CN II-XII grossly intact, no focal motor or sensory deficits noted Skin: Intact with no visualized rashes Psych: Normal affect and mood Limitations: no limitations Course Vital Signs 01/18/18 01/18/18 13:18 13:46 Temperature 97.9 F Pulse Rate 76 Pulse Rate [ 86 Bilateral Supine Pulse Oximetery] Respiratory 18 Rate Blood Pressure 208/94 O2 Sat by Pulse 97 Oximetry Medical Decision Making - Medical Decision Making ED course: 87-year-old male with multiple comorbidities presents chest pressure shortness of breath. He states that his symptoms for 3 weeks. Patient has multiple comorbidities including cancer and dyslipidemia and hypertension. Vital signs upon arrival shows blood pressure to 208/94.Clinical presentation suspicious for new onset CHF versus acute coronary syndrome. Laboratory evaluation obtained. CBC unremarkable. Coag panel is unremarkable. D-dimer 0.80. Metabolic panel is negative. BNP is 1000. Cardiac enzymes are negative. Chest x-ray shows no acute processes. Given elevated d-dimer and CT angios the chest was obtained. There is findings suggestive of pulmonary arterial hypertension. No pulmonary emboli noted. There is coronary calcifications seen incidentally. Patient is chest pain-free at this time. Given findings of coronary calcifications and HPI believes patient's symptoms are secondary to acute coronary syndrome. Initial cardiac enzymes are negative. We'll plan to have patient admitted to observation for serial troponins and cardiology consultation. Patient given an aspirin. EKG Interpretation: A 12 lead EKG was obtained. It was interpreted by myself and attending physician. There is a P wave before every QRS complex. Rate is 69. Rhythm is sinus rhythm with PVCs rhythm shows right bundle branch block. MT interval 150 , QRS 120, QTC 467. QT is not prolonged. No ST segment depression or elevation. - Lab Data Result diagrams: 01/18/18 13:42 01/18/18 13:42 Lab Results 01/18/18 01/18/18 01/18/18 Range/Units 13:42 13:42 13:42 WBC 7.0 (3.8-10.6) k/uL RBC 4.93 (4.30-5.90) m/uL Hgb 15.3 (13.0-17.5) gm/dL Hct 47.0 (39.0-53.0) % MCV 95.3 (80.0-100.0) fL MCH 31.1 (25.0-35.0) pg MCHC 32.6 (31.0-37.0) g/dL RDW 12.9 (11.5-15.5) % Plt Count 203 (150-450) k/uL Neutrophils % 73 % Lymphocytes % 16 % Monocytes % 6 % Eosinophils % 4 % Basophils % 0 % Neutrophils # 5.1 (1.3-7.7) k/uL Lymphocytes # 1.1 (1.0-4.8) k/uL Monocytes # 0.4 (0-1.0) k/uL Eosinophils # 0.3 (0-0.7) k/uL Basophils # 0.0 (0-0.2) k/uL PT (9.0-12.0) sec INR (<1.2) APTT (22.0-30.0) sec D-Dimer (<0.60) mg/L FEU Sodium 139 (137-145) mmol/L Potassium 5.0 (3.5-5.1) mmol/L Chloride 109 H (98-107) mmol/L Carbon Dioxide 22 (22-30) mmol/L Anion Gap 8 mmol/L BUN 21 H (9-20) mg/dL Creatinine 1.11 (0.66-1.25) mg/dL Est GFR (CKD-EPI)AfAm 70 (>60 ml/min/1.73 sqM) Est GFR (CKD-EPI)NonAf 60 (>60 ml/min/1.73 sqM) Glucose 91 (74-99) mg/dL Calcium 9.4 (8.4-10.2) mg/dL Magnesium 2.2 (1.6-2.3) mg/dL Total Bilirubin 0.6 (0.2-1.3) mg/dL AST 24 (17-59) U/L ALT 30 (21-72) U/L Alkaline Phosphatase 95 (38-126) U/L Total Creatine Kinase 81 (55-170) U/L CK-MB (CK-2) 2.1 (0.0-2.4) ng/mL CK-MB (CK-2) Rel Index 2.6 Troponin I <0.012 (0.000-0.034) ng/mL NT-Pro-B Natriuret Pep pg/mL Total Protein 6.6 (6.3-8.2) g/dL Albumin 4.0 (3.5-5.0) g/dL Lipase 58 (23-300) U/L 01/18/18 01/18/18 Range/Units 13:42 13:42 WBC (3.8-10.6) k/uL RBC (4.30-5.90) m/uL Hgb (13.0-17.5) gm/dL Hct (39.0-53.0) % MCV (80.0-100.0) fL MCH (25.0-35.0) pg MCHC (31.0-37.0) g/dL RDW (11.5-15.5) % Plt Count (150-450) k/uL Neutrophils % % Lymphocytes % % Monocytes % % Eosinophils % % Basophils % % Neutrophils # (1.3-7.7) k/uL Lymphocytes # (1.0-4.8) k/uL Monocytes # (0-1.0) k/uL Eosinophils # (0-0.7) k/uL Basophils # (0-0.2) k/uL PT 10.4 (9.0-12.0) sec INR 1.1 (<1.2) APTT 22.9 (22.0-30.0) sec D-Dimer 0.80 H (<0.60) mg/L FEU Sodium (137-145) mmol/L Potassium (3.5-5.1) mmol/L Chloride (98-107) mmol/L Carbon Dioxide (22-30) mmol/L Anion Gap mmol/L BUN (9-20) mg/dL Creatinine (0.66-1.25) mg/dL Est GFR (CKD-EPI)AfAm (>60 ml/min/1.73 sqM) Est GFR (CKD-EPI)NonAf (>60 ml/min/1.73 sqM) Glucose (74-99) mg/dL Calcium (8.4-10.2) mg/dL Magnesium (1.6-2.3) mg/dL Total Bilirubin (0.2-1.3) mg/dL AST (17-59) U/L ALT (21-72) U/L Alkaline Phosphatase (38-126) U/L Total Creatine Kinase (55-170) U/L CK-MB (CK-2) (0.0-2.4) ng/mL CK-MB (CK-2) Rel Index Troponin I (0.000-0.034) ng/mL NT-Pro-B Natriuret Pep 1190 pg/mL Total Protein (6.3-8.2) g/dL Albumin (3.5-5.0) g/dL Lipase (23-300) U/L Disposition Clinical Impression: ACS (acute coronary syndrome) Disposition: ADMITTED IP TO THIS HOSP Referrals: Anibal Schroeder DO [Primary Care Provider] - 1-2 days Decision Time: 16:46
[2018-01-18 14:35] LABS: Basophils % (A) 0 %; Eosinophils # (A) 0.3 k/uL (0-0.7); Eosinophils % (A) 4 %; HGB 15.3 gm/dL (13.0-17.5); Lymphocytes # (A) 1.1 k/uL (1.0-4.8); Lymphocytes % (A) 16 %; MCH 31.1 pg (25.0-35.0); MCHC 32.6 g/dL (31.0-37.0); MCV 95.3 fL (80.0-100.0); Monocytes # (A) 0.4 k/uL (0-1.0); Monocytes % (A) 6 %; Neutrophils # (A) 5.1 k/uL (1.3-7.7); Neutrophils % (A) 73 %; Platelet Count 203 k/uL (150-450); RBC 4.93 m/uL (4.30-5.90); RDW 12.9 % (11.5-15.5)
--- NOTE | 2018-01-18 14:39 | XR ---
EXAMINATION TYPE: XR chest 2V DATE OF EXAM: 01/18/2018 COMPARISON: Chest x-ray August 12, 2017. HISTORY: Cough and congestion for one month. TECHNIQUE: Frontal and lateral views of the chest are obtained. FINDINGS: There is persistent linear scarring or atelectasis in the left lung base. There is no new suspicious focal air space opacity, pleural effusion, or pneumothorax seen. The cardiac silhouette s ize is stable and upper limits of normal with atherosclerotic aorta. The osseous structures are int act. IMPRESSION: Stable left basilar linear scarring and/or atelectasis. No new suspicious focal infiltra te is seen.
[2018-01-18 14:52] LABS: Calcium 9.4 mg/dL (8.4-10.2); Magnesium 2.2 mg/dL (1.6-2.3); Total Bilirubin 0.6 mg/dL (0.2-1.3); Total Protein 6.6 g/dL (6.3-8.2)
[2018-01-18 14:57] LABS: INR 1.1 (<1.2); Partial Thromboplastin Time 22.9 sec (22.0-30.0); Prothrombin Time 10.4 sec (9.0-12.0)
[2018-01-18 14:58] LABS: Creatine Kinase 81 U/L (55-170)
[2018-01-18 15:02] LABS: D-Dimer 0.8 mg/L FEU (<0.60)
[2018-01-18 15:12] LABS: Creatine Kinase MB 2.1 ng/mL (0.0-2.4); Troponin I <0.012 ng/mL (0.000-0.034)
--- NOTE | 2018-01-18 16:35 | CT ---
EXAMINATION TYPE: CT angio chest DATE OF EXAM: 01/18/2018 COMPARISON: Chest radiograph of the same date. HISTORY: Chest pain CT DLP: 305.8 mGycm. Automated Exposure Control for Dose Reduction was Utilized. CONTRAST: CTA scan of the thorax is performed with IV Contrast, patient injected with 100 mL of Isovue 370, pul monary embolism protocol. MIP Images are created on CT scanner and reviewed. FINDINGS: LUNGS: There are very trace bilateral pleural effusions and left basilar airspace disease, likely ate lectasis given its linear and groundglass morphology. There is right hemidiaphragm elevation and righ t basilar subsegmental atelectasis. The lungs are grossly clear, there is no concerning parenchymal m ass or nodule identified. There is no pleural effusion or pneumothorax seen. The tracheobronchial tree is patent. MEDIASTINUM: There is marked cardiomegaly and moderate three-vessel coronary artery calcifications. N o pericardial effusion. There is a conventional three-vessel branch pattern of the aortic arch and mo derate atherosclerosis of the thoracic aorta. Small hiatal hernia is seen. The main pulmonary artery is enlarged measuring 4.2 cm. There is satisfactory enhancement of the pulmonary artery and its branc hes, there is no CT evidence for pulmonary embolism. There are no greater than 1 cm hilar or mediast inal lymph nodes. OTHER: Benign calcified granulomas are seen of the splenic parenchyma. Mild multilevel degenerative c hanges of the thoracic spine are noted. IMPRESSION: 1. No CT evidence of pulmonary embolism, however the main pulmonary artery is enlarged suggestive of underlying pulmonary arterial hypertension. 2. Cardiomegaly and moderate three-vessel coronary artery calcifications, marker of coronary artery d isease. 3. Small hiatal hernia. 4. Very trace pleural effusions and left basilar airspace disease, likely atelectasis. Incidentally n oted right hemidiaphragm elevation.
[2018-01-18] MEDS ORDERED: NITROGLYCERIN SL TABS 0.4 MG TAB SUBLINGUAL PRN (16:47)
[2018-01-18] MEDS ORDERED: ASPIRIN 81 MG PO STA (16:47)
[2018-01-18 21:24] LABS: Creatine Kinase MB 1.6 ng/mL (0.0-2.4); Troponin I 0.013 ng/mL (0.000-0.034)
[2018-01-18 21:52] VITALS: BMI 27.8
[2018-01-19] MEDS ORDERED: ACETAMINOPHEN TAB 500 MG TAB PO PRN (01:08)
[2018-01-19] MEDS ORDERED: ALPRAZolam 0.25 MG TAB PO PRN (01:08)
[2018-01-19] MEDS ORDERED: HYDROcodone/APAP 5-325MG 1 EACH TAB PO PRN (01:08)
[2018-01-19] MEDS ORDERED: TEMAZEPAM 15 MG CAP PO PRN (01:08)
[2018-01-19] MEDS ORDERED: METOPROLOL TARTRATE 12.5 MG TAB PO SCH (01:15)
[2018-01-19 01:46] LABS: Cholesterol 191 mg/dL (<200); HDL Cholesterol 56 mg/dL (40-60); LDL Cholesterol,Calculated 111 mg/dL (0-99); Triglycerides 122 mg/dL (<150)
[2018-01-19 02:00] LABS: Creatine Kinase MB 1.5 ng/mL (0.0-2.4); Troponin I 0.013 ng/mL (0.000-0.034)
[2018-01-19] MEDS: HEPARIN SODIUM,PORCINE 5,000 UNIT/ML 1 ML VIAL SQ SCH ×2 (03:33→10:36)
[2018-01-19 03:43] VITALS: RESP 18
[2018-01-19] MEDS ORDERED: PANTOPRAZOLE 40 MG TABLET PO SCH (07:30)
[2018-01-19] MEDS ORDERED: ASPIRIN 325 MG TAB PO SCH (09:00)
[2018-01-19] MEDS ORDERED: ASPIRIN 81 MG PO SCH (09:00)
[2018-01-19] MEDS ORDERED: LOSARTAN 25 MG TAB PO SCH (09:00)
--- NOTE | 2018-01-19 09:00 | HP ---
HISTORY AND PHYSICAL I am covering for Dr. Schroeder. DATE OF SERVICE: 01/18/2018 CHIEF COMPLAINTS: Chest pain, shortness of breath. HISTORY OF PRESENT ILLNESS: This 87-year-old gentleman with a past medical history of multiple medical problems including hypertension, hyperlipidemia, DJD, history of cholecystectomy, being followed by Dr. Schroeder in the outpatient setting, had a stress test about 6 years ago according to him. The patient is having chest pain today. The patient also has history of prostate cancer. Chest pressure was present for the last 3 weeks, aggravated today with just felt in the anterior part. The patient also had some coughing and some shortness of breath also. There is no radiation of pain elsewhere. The patient came to [facility] and admitted for further evaluation and treatment. Initial EKG showed left ST deviation and right bundle-branch block pattern, PACs also suspected and a chest CT was also done to rule out possible pulmonary embolism and the patient admitted for further evaluation and treatment. Cardiomegaly and coronary artery calcifications suspected. PAST MEDICAL HISTORY: History of hypertension, hyperlipidemia, history of prostate cancer, history of cholecystectomy. MEDICATIONS: Aspirin 325 mg daily. ALLERGIES: SULFA. FAMILY HISTORY: No history of heart disease or strokes in the family. SOCIAL HISTORY: No history of smoking. No history of alcohol intake. REVIEW OF SYSTEMS: ENT: No diminished hearing and no diminished vision. CARDIOVASCULAR SYSTEM: As mentioned earlier. RESPIRATORY SYSTEM: As mentioned earlier. GI: No nausea. : No dysuria. NERVOUS SYSTEM: No numbness or weakness. ALLERGY/IMMUNOLOGY: No history asthma or hay fever. MUSCULOSKELETAL: As mentioned earlier. HEMATOLOGY/ONCOLOGY: No history of anemia. ENDOCRINE: No history of diabetes or hypothyroidism. CONSTITUTIONAL: As mentioned earlier. DERMATOLOGY: Negative. RHEUMATOLOGY: Negative. PSYCHIATRY: As mentioned earlier. PHYSICAL EXAMINATION: The patient is alert and oriented x3. Pulse is 62, blood pressure 189/98, respirations 16, temperature 97.8, pulse ox 96% on room air. HEENT: Conjunctivae normal. Oral mucosa moist. Neck is no jugular venous distention. No carotid bruit. No lymph node enlargement. CARDIOVASCULAR: S1 and S2 muffled. RESPIRATORY: Breath sounds diminished at the bases. No rhonchi. No crackles. ABDOMEN: Soft, nontender. No mass palpable. LEGS: No edema, no swelling. NERVOUS SYSTEM: Higher functions as mentioned earlier. Moves all 4 limbs. No focal motor deficits. LYMPHATICS: No lymphadenopathy of the neck, axillae or groin. SKIN: No ulcer, rash or bleeding. LABS: CBC within normal. D-dimer 0.8. BUN is 21. Other labs are noted. Troponins are negative. EKG noted. ASSESSMENT: 1. Chest pain possible unstable angina. 2. Hypertension. 3. Right bundle branch block and left axis deviation on the EKG. 4. History of hyperlipidemia. 5. History of degenerative joint disease. 6. History of prostate cancer. 7. History of glaucoma. 8. History of cardiac catheterization. RECOMMENDATIONS AND DISCUSSION: This 87-year-old gentleman who presented with multiple complex medical issues, we will monitor the patient closely. Continue the current medications. Will initiate antiplatelet agents and beta blockers. Cardiology consultation. Keep the patient n.p.o. after midnight, possible stress test in the morning. Guarded prognosis. Further recommendations to follow. I would also recommend a 2-D echo with Doppler also. A copy of dictation forwarded to Dr. Schroeder who is the primary physician. MMODL / IJN: [id number] /
[2018-01-19] MEDS ORDERED: ISOSORBIDE MONONITRATE ER 30 MG TAB.ER.24H PO SCH (09:25)
[2018-01-19 11:36] VITALS: BP 135/80; PULSE 60; TEMP 98.4
--- NOTE | 2018-01-19 12:18 | ECHOF ---
Referral Reason:chf MEASUREMENTS -------- HEIGHT: 172.7 cm WEIGHT: 82.6 kg BP: 154/85 RVIDd: 3.3 cm (< 3.3) IVSd: 1.5 cm (0.6 - 1.1) LVIDd: 5.4 cm (3.9 - 5.3) LVPWd: 1.4 cm (0.6 - 1.1) IVSs: 1.8 cm LVIDs: 3.5 cm LVPWs: 1.7 cm LA Diam: 4.1 cm (2.7 - 3.8) LAESV Index (A-L): 36.62 ml/m Ao Diam: 2.7 cm (2.0 - 3.7) AV Cusp: 2.0 cm (1.5 - 2.6) MV EXCURSION: 12.538 mm (> 18.000) MV EF SLOPE: 95 mm/s (70 - 150) EPSS: 1.0 cm MV E Troy: 0.62 m/s MV DecT: 224 ms MV A Troy: 0.74 m/s MV E/A Ratio: 0.83 RAP: 5.00 mmHg RVSP: 45.05 mmHg FINDINGS -------- Sinus rhythm. This was a technically adequate study. The left ventricular size is normal. There is moderate concentric left ventricular hypertrophy. O verall left ventricular systolic function is mildly impaired with, an EF between 45 - 50 %. The right ventricle is mildly enlarged. LA is moderately dilated 34-39 ml/m2 The right atrium is normal in size. There is mild aortic valve sclerosis. The mitral valve leaflets are mildly thickened. Mild mitral annular calcification present. Mild m itral regurgitation is present. Mild tricuspid regurgitation present. There is mild pulmonary hypertension. The right ventricular systolic pressure, as measured by Doppler, is 45.05mmHg. Trace/mild (physiologic) pulmonic regurgitation. The aortic root size is normal. Normal inferior vena cava with normal inspiratory collapse consistent with estimated right atrial pre ssure of 5 mmHg. The inferior vena cava is mildly dilated. There is no pericardial effusion. CONCLUSIONS -------- 1. Sinus rhythm. 2. This was a technically adequate study. 3. The left ventricular size is normal. 4. There is moderate concentric left ventricular hypertrophy. 5. The right ventricle is mildly enlarged. 6. LA is moderately dilated 34-39 ml/m2 7. The right atrium is normal in size. 8. There is mild aortic valve sclerosis. 9. The mitral valve leaflets are mildly thickened. 10. Mild mitral annular calcification present. 11. Mild mitral regurgitation is present. 12. Mild tricuspid regurgitation present. 13. There is mild pulmonary hypertension. 14. The right ventricular systolic pressure, as measured by Doppler, is 45.05mmHg. 15. Trace/mild (physiologic) pulmonic regurgitation. 16. The aortic root size is normal. 17. Normal inferior vena cava with normal inspiratory collapse consistent with estimated right atrial pressure of 5 mmHg. 18. The inferior vena cava is mildly dilated. 19. There is no pericardial effusion. SHADE MAKER: Tatianna Grubbs RDCS
--- NOTE | 2018-01-19 13:59 | P.CRDCN ---
History of Present Illness History of present illness: Mr. Fritz is a pleasant 87-year-old male past medical history significant for coronary artery disease with calcified left main, 30-40% disease in the LAD, 60% disease in the OM and 50% disease in RCA, hypertension, dyslipidemia and prostate cancer. He follows with Dr. Gusman in the office. We have been asked to see him in consultation for chest pain. He states for the previous 3 weeks he has felt increasingly fatigued and short of breath with minimal activity. He also describes an a non-specific discomfort in his chest in the mid-sternal region that feels sharp in nature with no radiation to the arm, neck, back or jaw. He denies dizziness or palpitations. His symptoms aren' t related to exertion and aren't suggestive of angina. He recently underwent radiation therapy for prostate cancer and stopped taking all other medications. He finished his therapy in October and states he just hasn't gotten around to refilling his heart medications. EKG reveals sinus mechanism right bundle branch block no acute ST or T wave abnormalities noted. Chest x-ray reveals stable left basilar linear scarring no acute infiltrate or overt heart failure noted. CTA chest negative for pulmonary embolism with evidence of cardiomegaly and moderate three-vessel coronary artery calcifications, small hiatal hernia noted. Laboratory data reviewed, hemoglobin 15.3, platelets 23, d-dimer 0.8, sodium 139 , potassium 5.0, magnesium 2.2, cardiac enzymes negative 3, NT proBNP 1190, LDL 111, HDL 56. Prior to starting radiation for prostate cancer he was on Imdur 30 mg daily, losartan 25 mg daily, simvastatin 20 mg daily and aspirin 81 mg daily. Most recent stress test performed in the office 12/2016 with a Sylvia scan and indicated a fixed lateral defect. Most recent echocardiogram obtained in the office May 2016 reveals left ventricular systolic function normal with ejection fraction 50%, moderate concentric left ventricular hypertrophy, moderately dilated left atrium, mildly dilated right ventricle, mildly dilated right atrium, mild to moderate mitral regurgitation, mild aortic regurgitation and mild to moderate tricuspid regurgitation. Review of Systems At the time of my exam: CONSTITUTIONAL: Denies fever. Denies chills. EYES: Denies blurred vision. Denies vision changes. Denies eye pain. EARS, NOSE, MOUTH & THROAT: Denies headache. Denies sore throat. Denies ear pain. CARDIOVASCULAR: Denies chest pain. Denies shortness of breath. Denies orthopnea. Denies PND. Denies palpitations. RESPIRATORY: Denies cough. GASTROINTESTINAL: Denies abdominal pain. Denies diarrhea. Denies constipation. Denies nausea. Denies vomiting. MUSCULOSKELETAL: Denies myalgias. INTEGUMENTARY: Denies pruitis. Denies rash. NEUROLOGIC: Denies numbness. Denies tingling. Denies weakness. PSYCHIATRIC: Denies anxiety. Denies depression. ENDOCRINE: Denies fatigue. Denies weight change. Denies polydipsia. Denies polyurina. GENITOURINARY: Denies burning, hematuria or urgency with micturation. HEMATOLOGIC: Denies history of anemia. Denies bleeding. Past Medical History Past Medical History: Cancer, Hyperlipidemia, Hypertension, Osteoarthritis (OA) , Prostate Disorder Additional Past Medical History / Comment(s): SINUS ALLERGIES. GLAUCOMA (RIGHT EYE), numbness- lt foot pinky toe and toe next to it, prostate cancer with radiation (44x) last one in October 26 History of Any Multi-Drug Resistant Organisms: None Reported Past Surgical History: Cholecystectomy, Heart Catheterization, Hernia Repair, Joint Replacement, Tonsillectomy Additional Past Surgical History / Comment(s): BILATERAL CATARACTS (2004). TOTAL RIGHT HIP, lt knee replacement, carotid left side Past Anesthesia/Blood Transfusion Reactions: No Reported Reaction Smoking Status: Never smoker - Past Family History Mother Family Medical History: No Reported History Father Family Medical History: No Reported History Medications and Allergies Home Medications Medication Instructions Recorded Confirmed Type Aspirin 81 mg PO DAILY #0 chew 01/19/18 Rx Isosorbide Mononitrate ER [Imdur] 30 mg PO DAILY #30 tab.er.24h 01/19/18 Rx Losartan [Cozaar] 25 mg PO DAILY #30 tab 01/19/18 Rx Simvastatin [Zocor] 20 mg PO DAILY #30 tablet 01/19/18 Rx Allergies Allergy/AdvReac Type Severity Reaction Status Date / Time Sulfa (Sulfonamide Allergy Unknown Verified 01/18/18 21:41 Antibiotics) Childhood Physical Exam Vitals: Vital Signs Temp Pulse Pulse Pulse Resp BP BP 01/19/18 07:53 97.8 F 57 L 18 176/97 01/19/18 03:42 97.9 F 52 L 18 154/85 01/19/18 03:26 16 01/19/18 00:00 98.1 F 66 16 170/88 01/18/18 23:40 16 01/18/18 21:17 189/98 01/18/18 21:00 97.8 F 62 16 01/18/18 20:13 55 L 16 164/80 01/18/18 17:58 98 F 64 18 166/73 01/18/18 13:46 86 01/18/18 13:18 97.9 F 76 18 208/94 Pulse Ox 01/19/18 07:53 96 01/19/18 03:42 94 L 01/19/18 03:26 01/19/18 00:00 96 01/18/18 23:40 01/18/18 21:17 01/18/18 21:00 96 01/18/18 20:13 94 L 01/18/18 17:58 99 01/18/18 13:46 01/18/18 13:18 97 Intake and Output 01/18/18 01/19/18 01/19/18 22:59 06:59 14:59 Other: # Voids 1 1 Weight 83 kg GENERAL: This is a 87-year-old male in no apparent distress at the time of my examination. HEENT: Head is atraumatic, normocephalic. Pupils are equal, round. Sclerae anicteric. Conjunctivae are clear. Mucous membranes of the mouth are moist. Neck is supple. There is no jugular venous distention. No carotid bruit is heard. LUNGS: Clear to auscultation no wheezes, rales or rhonchi. No chest wall tenderness is noted on palpation or with deep breathing. HEART: Regular rate and rhythm with systolic ejection murmur at the apex, no rubs or gallops. S1 and S2 heard. ABDOMEN: Soft, nontender. Bowel sounds are heard. No organomegaly noted. EXTREMITIES: No evidence of peripheral edema and no calf tenderness noted. VASCULAR: Radial and dorsalis pedis pulses palpated, no evidence of clubbing. NEUROLOGIC: Patient is awake, alert and oriented x3. Results 01/18/18 13:42 01/18/18 13:42 Cardiac Enzymes 01/18/18 01/18/18 01/18/18 Range/Units 13:42 13:42 20:17 AST 24 (17-59) U/L CK-MB (CK-2) 2.1 1.6 (0.0-2.4) ng/mL Troponin I <0.012 0.013 (0.000-0.034) ng/mL 01/19/18 Range/Units 00:54 AST (17-59) U/L CK-MB (CK-2) 1.5 (0.0-2.4) ng/mL Troponin I 0.013 (0.000-0.034) ng/mL Coagulation 01/18/18 Range/Units 13:42 PT 10.4 (9.0-12.0) sec APTT 22.9 (22.0-30.0) sec Lipids 01/19/18 Range/Units 00:54 Triglycerides 122 (<150) mg/dL Cholesterol 191 (<200) mg/dL HDL Cholesterol 56 (40-60) mg/dL CBC 01/18/18 Range/Units 13:42 WBC 7.0 (3.8-10.6) k/uL RBC 4.93 (4.30-5.90) m/uL Hgb 15.3 (13.0-17.5) gm/dL Hct 47.0 (39.0-53.0) % Plt Count 203 (150-450) k/uL Comprehensive Metabolic Panel 01/18/18 Range/Units 13:42 Sodium 139 (137-145) mmol/L Potassium 5.0 (3.5-5.1) mmol/L Chloride 109 H (98-107) mmol/L Carbon Dioxide 22 (22-30) mmol/L BUN 21 H (9-20) mg/dL Creatinine 1.11 (0.66-1.25) mg/dL Glucose 91 (74-99) mg/dL Calcium 9.4 (8.4-10.2) mg/dL AST 24 (17-59) U/L ALT 30 (21-72) U/L Alkaline Phosphatase 95 (38-126) U/L Total Protein 6.6 (6.3-8.2) g/dL Albumin 4.0 (3.5-5.0) g/dL Current Medications Generic Name Dose Route Start Last Admin Trade Name Freq PRN Reason Stop Dose Admin Acetaminophen 500 mg 01/19/18 01:08 Tylenol Tab PO Q6HR PRN Fever and/ or Pain Hydrocodone Bitart/Acetaminophen 1 each 01/19/18 01:08 [place] 5-325 PO Q6HR PRN Pain Alprazolam 0.25 mg 01/19/18 01:08 Xanax PO TID PRN Anxiety Aspirin 81 mg 01/19/18 09:00 Aspirin PO DAILY WAN Heparin Sodium (Porcine) 5,000 unit 01/19/18 01:15 01/19/18 03:33 Heparin SQ 5,000 unit Q12HR WAN Administration Losartan Potassium 25 mg 01/19/18 09:00 Cozaar PO DAILY WAN Nitroglycerin 0.4 mg 01/18/18 16:47 Nitrostat SUBLINGUAL Q5M PRN Chest Pain Pantoprazole Sodium 40 mg 01/19/18 07:30 Protonix PO AC-BRKFST WAN Temazepam 15 mg 01/19/18 01:08 Restoril PO HS PRN Insomnia Intake and Output 01/18/18 01/19/18 01/19/18 22:59 06:59 14:59 Other: # Voids 1 1 Weight 83 kg 01/18/18 13:42 01/18/18 13:42 Assessment and Plan Assessment: ASSESSMENT Chest pain, atypical. An acute coronary event has been ruled out with no EKG evidence of ischemia and negative cardiac enzymes. History of multivessel coronary artery disease, most recent catheterization 2006. Hypertension Dyslipidemia History of prostate cancer, radiation to complete PLAN An acute coronary event has been ruled out. Resume Imdur, losartan and aspirin. Mr. Fritz has known multi-vessel CAD. We recommend resuming his cardiac medications and follow up with Dr. Gusman for further testing as an outpatient if his symptoms persist. Obtain 2-D echocardiogram and Doppler study to assess cardiac structure and function. Prescriptions were sent to the pharmacy for his cardiac medications. Follow up with Dr. Gusman in 2-3 weeks. Nurse Practitioner note has been reviewed, I agree with a documented findings and plan of care. Patient was seen and examined.
--- NOTE | 2018-01-27 23:05 | DS ---
DISCHARGE SUMMARY FINAL DIAGNOSES: 1. Chest pain possible unstable angina. Myocardial infarction ruled out. 2. Hypertension. 3. History of right bundle branch block and left axis deviation on the EKG. 4. History of hyperlipidemia. 5. Degenerative joint disease. 6. History of prostate cancer. 7. History of glaucoma. 8. History of cardiac catheterization. DISCHARGE DISPOSITION: The patient being discharged in stable condition with guarded prognosis. Discharged cleared by Cardiology. HISTORY OF PRESENT ILLNESS: This 87-year-old gentleman with a past medical history of multiple medical problems was admitted with chest pain. Myocardial infarction ruled out. Cardiology saw the patient and recommended outpatient followup and medical treatment. On exam, vital signs are stable. Cardiovascular is S1, S2. Abdomen soft. Nervous System No focal deficits. DISCHARGE ADVICE AND MEDICATIONS: 1. Diet is cardiac diet. 2. Activity limited until follow up. 3. Follow up with Dr. Anibal Schroeder in 2 to 3 days. 4. with cardiology as recommended. MEDICATIONS: 1. Ecotrin 81 mg daily. 2. Imdur ER 30 mg. 3. Cozaar 20 mg daily. 4. Zocor 20 mg p.o. daily. MMODL / IJN: [id number] / MTDD
== END 2018-01-19 14:22 | disposition home or self-care (01) ==
LOC: EC 13:16 → 3OBS 16:47
PROVIDERS: ADMIT Hospitalist; ATTEND Hospitalist
DX: R07.89 Other chest pain (principal); I45.10 Unspecified right bundle-branch block; I25.10 Atherosclerotic heart disease of native coronary artery without angina pectoris; I25.84 Coronary atherosclerosis due to calcified coronary lesion; C61 Malignant neoplasm of prostate; I10 Essential (primary) hypertension; H40.9 Unspecified glaucoma; E78.5 Hyperlipidemia, unspecified; M19.90 Unspecified osteoarthritis, unspecified site; Z90.49 Acquired absence of other specified parts of digestive tract; Z79.82 Long term (current) use of aspirin; Z88.2 Allergy status to sulfonamides; Z92.3 Personal history of irradiation; I08.3 Combined rheumatic disorders of mitral, aortic and tricuspid valves; R79.1 Abnormal coagulation profile; Z79.899 Other long term (current) drug therapy; Z96.652 Presence of left artificial knee joint; Z96.641 Presence of right artificial hip joint; Z98.42 Cataract extraction status, left eye; Z98.41 Cataract extraction status, right eye
CPT/HCPCS: 96372; 99285; 36415; 93005; 93306; 85379; 83880; 80061; 80053; 82550 ×2; 82553 ×2; 83690; 83735; 84484 ×2; 85025; 85610; 85730; 71046; 71275; G0378 ×2; J1644; Q9967

== ENCOUNTER → 2019-09-24 | Outpatient (CLI) | payer MEDICARE, BC ==
--- NOTE | 2019-09-25 10:42 | ECHOF ---
Referral Reason:I50.9 Heart failure, unspecified MEASUREMENTS -------- HEIGHT: 172.7 cm WEIGHT: 81.2 kg BP: RVIDd: 3.3 cm (< 3.3) IVSd: 1.5 cm (0.6 - 1.1) LVIDd: 4.3 cm (3.9 - 5.3) LVPWd: 1.5 cm (0.6 - 1.1) IVSs: 1.5 cm LVIDs: 3.1 cm LVPWs: 1.9 cm Ao Diam: 3.0 cm (2.0 - 3.7) AV Cusp: 1.2 cm (1.5 - 2.6) LA Diam: 3.0 cm (2.7 - 3.8) MV E Troy: 0.47 m/s MV DecT: 260 ms MV A Troy: 0.73 m/s MV E/A Ratio: 0.64 RAP: 5.00 mmHg RVSP: 11.86 mmHg FINDINGS -------- Sinus rhythm. This was a technically difficult study with suboptimal views. The left ventricular size is normal. There is moderate concentric left ventricular hypertrophy. O verall left ventricular systolic function is low-normal with, an EF between 50 - 55 %. The right ventricle is mildly enlarged. The left atrial size is normal. The right atrial size is normal. xx ml of Lumason was utilized for enhancement of images. The aortic valve was not well visualized. There is trace mitral regurgitation. The tricuspid valve appears structurally normal. Trace tricuspid regurgitation present. Right bernadine tricular systolic pressure is normal at < 35 mmHg. There is no pulmonic regurgitation present. The aortic root size is normal. IVC Not well visulized. There is no pericardial effusion. CONCLUSIONS -------- 1. Sinus rhythm. 2. This was a technically difficult study with suboptimal views. 3. The left ventricular size is normal. 4. There is moderate concentric left ventricular hypertrophy. 5. Overall left ventricular systolic function is low-normal with, an EF between 50 - 55 %. 6. The right ventricle is mildly enlarged. 7. The left atrial size is normal. 8. The right atrial size is normal. 9. xx ml of Lumason was utilized for enhancement of images. 10. The aortic valve was not well visualized. 11. There is trace mitral regurgitation. 12. The tricuspid valve appears structurally normal. 13. Trace tricuspid regurgitation present. 14. Right ventricular systolic pressure is normal at < 35 mmHg. 15. There is no pulmonic regurgitation present. 16. The aortic root size is normal. 17. IVC Not well visulized. 18. There is no pericardial effusion. AUTOMOBILE BODY WORKER: Kelsey Pendleton RDCS
== END | disposition home or self-care (01) ==
LOC: RADECHMAIN 14:50
PROVIDERS: ATTEND Family Medicine
DX: I51.7 Cardiomegaly (principal)
CPT/HCPCS: C8929; Q9950; 93306